=== PATIENT | female | born 2000 | race Two or more races ===

== ENCOUNTER 2018-01-03 20:51 | Emergency (ER) | payer OTHER ==
[~2018-01-03] VITALS: Ht 172.7 cm; Wt 81.6 kg
[2018-01-03 21:01] VITALS: BP 122/73
== END 2018-01-03 23:27 | disposition home or self-care (01) ==
LOC: ER 20:53
DX: M25.571 Pain in right ankle and joints of right foot (principal); J45.909 Unspecified asthma, uncomplicated
CPT/HCPCS: 73610-TC; A4606; Z7610